=== PATIENT | female | born 1960 ===

== ENCOUNTER 2016-06-01 10:36 | Inpatient (IN) | payer MEDICARE, MEDICAID ==
[~2016-06-01 10:36] MED LIST: ACETAMINOPHEN120 ML PO; ADVIL200 MG; ALBUTEROL17 GM INH; AMBIEN10 MG; ANTIVERT25 MG PO; ASPIRIN EC81 MG PO; AZITHROMYCIN250 M1 PO; BACTRIM DS TAB1 EAC2 PO; BENTYL20 MG PO; BUPROPION XL150 M1 PO; CALCIUM 500 +1 EAC4 PO; CALCIUM 600 MG1 EACH PO; CALCIUM PO; CATAFLAM50 MG PO; CIPRO500 MG PO; COLACE100 MG PO; COLD; COMPAZINE10 M PO; CYCLOBENZAPRINE10 MG PO; CYCLOBENZAPRINE5 M1 PO; FLEXERIL10 MG PO; FLEXERIL5 MG; FLEXERIL5 MG PO; FLU; GLUCOPHAGE1000 MG PO; GLUCOPHAGE500 M3 PO; HYDROCODON-ACE1 EA16 PO; IBUPROFEN IB200 M1 PO; IBUPROFEN200 M1 PO; IBUPROFEN200 M2 PO; IBUPROFEN800 MG; IMITREX50 M2 PO; INDERAL10 MG PO; KEFLEX500 MG PO; LEVAQUIN750 M1 PO; LORTAB 5/500 TA1 TAB PO; METAXALONE800 MG PO; MOTRIN IB200 MG; MOTRIN600 MG PO; NAPROSYN500 M1 PO; NERVE PAIN MED; NORCO 5-325 TA1 EACH PO; NORCO 5/325 TAB1 TAB PO; NORCO 5/3251 TA2 PO; NYSTOP60 GM TP; OMEGA 3 1,0001 EAC1 PO; OMEGA 3 1,0001 EACH PO; OMEGA 31 CAP PO; PATADAY2.5 M1 OP; PAXIL PO; PAXIL10 MG PO; PERCOCET 10/31 UDTAB; PERCOCET 5-3251 EACH PO; PERCOCET 5/3251 TAB PO; PHENERGAN12.5 MG PO; PREDNISONE10 M1 PO; PRILOSEC40 MG PO; PROMETHAZINE-C118 ML PO; PROPRANOLOL HCL20 M2 PO; PROVENTIL HFA6.7 GM IH; REGLAN10 MG; SKELAXIN800 MG PO; SOMA350 MG PO; TORADOL10 MG PO; TRAMADOL HCL50 M2 PO; TRAMADOL HCL50 MG PO; TYLENOL325 MG PO; ULTRAM50 MG; ULTRAM50 MG PO; VALIUM5 MG; VENTOLIN HFA18 G2 PO; VICOPROFEN 2001 EAC1 PO; WOMENS MULTIPLE1 TAB PO; ZITHROMAX250 MG PO; ZITHROMAX250MG Z-PAK PO; ZOFRAN ODT4 MG PO; ZOFRAN ODT4 MG SL; ZOFRAN4 MG PO; [UNRECOGNIZED DRUG - OTHER]; [UNRECOGNIZED DRUG - OTHER]
[2016-06-02 05:59] LABS: BASO % 0.1 % (0-2); HCT-HEMATOCRIT 33.3 % (34.0-49.0); HGB-HEMOGLOBIN 10.7 gm/dl (12.0-15.5); IMMATURE GRANULOCYTES ABSOLUTE 0.03 tho/cmm (0-0.03); IMMATURE GRANULOCYTES PERCENT 0.2 % (0-0.3); LYMPH % 13.2 % (20-45); LYMPH ABSOLUTE COUNT 1.9 tho/cmm (0.8-4.5); MCH (MEAN CORPUSCULAR HGB) 26.5 pg (28.0-32.0); MCHC MEAN CORPUSCULAR HGB CONC 32.1 % (32.0-36.0); MCV (MEAN CELL VOLUME) 82.4 fl (82.0-96.0); MEAN PLATELET VOLUME 11.1 cmc (9.4-12.4); NEUTROPHIL ABSOLUTE COUNT 11.3 tho/cmm (1.6-8.0); NEUTROPHIL-AUTOMATED 11.3 tho/cmm (1.6-8.0); NEUTROPHILS % 79.5 % (40-80); PLATELET COUNT 255 tho/cmm (150-450); RED BLOOD COUNT 4.04 mil/cmm (4.00-5.20); RED CELL DISTRIBUTION WIDTH 14.1 % (12.4-16.4); WHITE BLOOD COUNT 14.2 tho/cmm (4.0-10.0)
[2016-06-04] MEDS ORDERED: ASPIRIN325 M3 PO (10:03)
[2016-06-04] MEDS ORDERED: TYLENOL325 M2 PO (10:04)
[2016-06-04] MEDS ORDERED: ROXICODONE5 M2 PO (10:05)
[2016-06-04] MEDS ORDERED: COMPAZINE5 M2 PO (10:06)
[2016-06-04] MEDS ORDERED: MOBIC7.5 M2 PO (10:16)
[2016-06-04] MEDS ORDERED: ULTRAM50 M1 PO (10:21)
== END 2016-06-04 12:45 | DRG 470 ==
LOC: SHSB 10:36 → ORE 13:04 → PACU 16:12 → 5EA 17:52
PROVIDERS: ADMIT Orthopaedic Surgery
PROC: 0SRC0J9 Replacement of Right Knee Joint with Synthetic Substitute, Cemented, Open Approach (ICD-10-PCS; principal; 2016-06-01)
DX: M17.11 Unilateral primary osteoarthritis, right knee (principal); Z68.41 Body mass index [BMI] 40.0-44.9, adult; I10 Essential (primary) hypertension; M21.161 Varus deformity, not elsewhere classified, right knee; E11.9 Type 2 diabetes mellitus without complications; E66.01 Morbid (severe) obesity due to excess calories; Z23 Encounter for immunization
CPT/HCPCS: C1713; C1776; G0008; J0171; J0690; J1170; J1885; J2270; J2405; J2795

== ENCOUNTER 2016-08-27 21:17 | Emergency (ER) | payer MEDICARE, MEDICAID ==
[~2016-08-27 21:17] MED LIST changes: +ASPIRIN325 M3 PO; +COMPAZINE5 M2 PO; +MOBIC7.5 M2 PO; +ROXICODONE5 M2 PO; +TYLENOL325 M2 PO; +ULTRAM50 M1 PO
[2016-08-27] MEDS ORDERED: TRAMADOL HCL50 M2 PO (23:08)
== END 2016-08-27 23:23 ==
LOC: EDMED 21:17
DX: S86.812A Strain of other muscle(s) and tendon(s) at lower leg level, left leg, initial encounter (principal); X50.1XXA Overexertion from prolonged static or awkward postures, initial encounter
CPT/HCPCS: J1885